=== PATIENT | female | born 1990 | race American Indian/Alaskan Native ===

== ENCOUNTER 2019-03-09 13:25 | Inpatient (IN) | payer OTHER ==
[~2019-03-09] VITALS: Ht 160 cm; Wt 72.6 kg
[~2019-03-09 13:25] MED LIST: FE C TABLET1 EACH PO; FOLIC ACID1 MG PO; PRENATAL TABLE1 EAC1 PO
== END 2019-03-15 12:04 | disposition home or self-care (01) | DRG 785 ==
LOC: O/R 03-12 07:26 → OB/GYN 03-12 07:26 → LDR 03-12 13:22 → OB/GYN 03-15 12:04
PROVIDERS: ADMIT Specialist
PROC: 0UL70ZZ Occlusion of Bilateral Fallopian Tubes, Open Approach (ICD-10-PCS; 2019-03-12)
PROC: 4A1HXCZ Monitoring of Products of Conception, Cardiac Rate, External Approach (ICD-10-PCS; 2019-03-12)
PROC: 10D00Z1 Extraction of Products of Conception, Low, Open Approach (ICD-10-PCS; principal; 2019-03-12 13:00)
DX: O82 Encounter for cesarean delivery without indication (principal); Z3A.39 39 weeks gestation of pregnancy; Z37.0 Single live birth; Z30.2 Encounter for sterilization